=== PATIENT | male | born 1985 | race Caucasian/White ===

== ENCOUNTER → 2016-06-03 | Outpatient (CLI) | payer OTHER | LOC: KOH-I 14:47 | DX: E04.9 Nontoxic goiter, unspecified (principal) | CPT/HCPCS: 76536 ==

== ENCOUNTER 2021-01-20 14:20 | Emergency (ER) | payer OTHER ==
[2021-01-20] MEDS ORDERED: AUGMENTIN 875-1 EACH PO (17:16)
== END 2021-01-20 17:51 | disposition home or self-care (01) ==
LOC: ER1 14:20
DX: S51.852A Open bite of left forearm, initial encounter (principal); S51.832A Puncture wound without foreign body of left forearm, initial encounter; Z23 Encounter for immunization; F17.210 Nicotine dependence, cigarettes, uncomplicated
CPT/HCPCS: 73090; 90471; 90715; 99283